=== PATIENT | male | born 1950 | race Caucasian/White ===

== ENCOUNTER 2024-04-17 20:43 | Emergency (ER) | payer MEDICARE, OTHER ==
[2024-04-17] MEDS: Sodium Chloride 0.9% 10 ML Syringe FLUSH PRN (21:55)
[2024-04-17] MEDS ORDERED: Acetaminophen/Codeine 300-30 MG Tab ONE (22:00)
[2024-04-17] MEDS: Sodium Chloride 0.9% 1,000 ML IV ONE (22:00)
[2024-04-17 22:07] LABS: BASOPHILS ABSOLUTE AUTO 0.01 K/uL (0.02-0.10); BASOPHILS PERCENT AUTO 0.2 % (0.0-0.5); EOSINOPHILS ABSOLUTE AUTO 0.01 K/uL (0.04-0.40); EOSINOPHILS PERCENT AUTO 0.2 % (1.0-5.0); HEMOGLOBIN 13.8 g/dL (13.0-18.0); LYMPHOCYTES ABSOLUTE AUTO 0.58 K/uL (1.50-4.00); LYMPHOCYTES PERCENT AUTO 10.7 % (20.0-40.0); MEAN CORPUSCULAR HEMOGLOBIN 31.4 pg (27.0-32.0); MEAN CORPUSCULAR HGB CONC 32.9 g/dL (31.0-35.0); MEAN CORPUSCULAR VOLUME 96 fL (76-96); MEAN PLATELET VOLUME 11.2 fL (6.0-10.0); MONOCYTES ABSOLUTE AUTO 0.71 K/uL (0.20-0.80); MONOCYTES PERCENT AUTO 13.1 % (3.0-10.0); NEUTROPHILS PERCENT AUTO 75.8 % (45.0-70.0); PLATELET COUNT,PLT 121 K/uL (150-400); RED CELL DISTRIBUTION WIDTH 13.8 % (11.0-16.0); WHITE BLOOD CELL COUNT,WBC 5.4 K/uL (4.0-11.0)
[2024-04-17 22:21] LABS: A/G RATIO 1.1 (0.8-2.0); ALBUMIN 3.4 g/dL (3.4-5.0); ANION GAP 10.4 mmol/L (5.0-15.0); BILIRUBIN TOTAL 0.7 mg/dL (0.0-1.0); BUN/CREATININE RATIO 14.4 (6-25); CALCIUM 8.2 mg/dL (8.5-10.1); CARBON DIOXIDE,CO2 28.8 mmol/L (21.0-32.0); CREATININE 1.04 mg/dL (0.70-1.30); EST CRCL DRUG DOSING (CG) 63.03 mL/min; POTASSIUM,K 3.2 mmol/L (3.5-5.1); PROTEIN TOTAL,TP 6.4 g/dL (6.4-8.2)
[2024-04-17] MEDS: Albuterol/Ipratropium 3.0-0.5 MG/3 ML Neb Soln NEB SCH (22:22)
[2024-04-17 22:49] LABS: INFLUENZA A NAA NEGATIVE (NEGATIVE); INFLUENZA B NAA NEGATIVE (NEGATIVE); RESPIRATORY SYNCYTIAL VIR NAA NEGATIVE (NEGATIVE)
[2024-04-17 22:52] LABS: CORONAVIRUS COVID-19 NAA POSITIVE (NEGATIVE)
[2024-04-17] MEDS: Iopamidol 612 MG/ML 100 ML Bottle IV SCH (22:58)
[2024-04-17] MEDS: Sodium Chloride 0.9% 50 ML SDV FLUSH ONE (22:58)
[2024-04-17] MEDS: Morphine 4 MG/ML VIAL IVPUSH ONE (23:12)
[2024-04-17] MEDS: Albuterol 0.083% 2.5 MG/3 ML Neb Soln NEB ONE (23:39)
[2024-04-17] MEDS: Potassium Chloride Riders 10 MEQ in Premix Bag 1 BAG IV ONE (23:47)
== END 2024-04-18 00:53 | disposition home or self-care (01) ==
LOC: LB.ED 20:43
DX: U07.1 COVID-19 (principal); J06.9 Acute upper respiratory infection, unspecified; S20.212A Contusion of left front wall of thorax, initial encounter; M19.90 Unspecified osteoarthritis, unspecified site; E66.9 Obesity, unspecified; Z79.899 Other long term (current) drug therapy; Z79.82 Long term (current) use of aspirin; Z87.891 Personal history of nicotine dependence; W01.0XXA Fall on same level from slipping, tripping and stumbling without subsequent striking against object, initial encounter
CPT/HCPCS: 0241U; 36415; 71045; 71260; 80053; 83880; 84484; 85025; 94640; 96361; 96365; 96375; 96376; 99285; A9270; J2270; J3480; J3490; J7030; Q9967; 93010; 99284; J7620

== ENCOUNTER 2024-04-23 19:35 | Emergency (ER) | payer MEDICARE, OTHER ==
[2024-04-23] MEDS ORDERED: Amoxicillin/Clavulanate K 875-125 MG Tab ONE (20:00)
== END 2024-04-23 20:10 | disposition home or self-care (01) ==
LOC: LB.ED 19:35
DX: K08.89 Other specified disorders of teeth and supporting structures (principal)
CPT/HCPCS: 99283; A9270-GY